=== PATIENT | female | born 1990 | race Caucasian/White ===

== ENCOUNTER 2019-06-06 08:20 | Emergency (ER) | payer MEDICAID ==
[~2019-06-06] VITALS: Ht 160 cm; Wt 72.6 kg
[2019-06-06 08:28] VITALS: TEMP 98.7
[2019-06-06] MEDS ORDERED: CRUTCHES MC (08:49)
[2019-06-06] MEDS ORDERED: PERCOCET 325 MG1 TA2 PO (08:49)
[2019-06-06 09:45] VITALS: BP 135/94; PULSE 81
== END 2019-06-06 09:50 | disposition home or self-care (01) ==
LOC: COL.ER 08:20
DX: S82.891A Other fracture of right lower leg, initial encounter for closed fracture (principal); S93.402A Sprain of unspecified ligament of left ankle, initial encounter; W10.9XXA Fall (on) (from) unspecified stairs and steps, initial encounter; X50.1XXA Overexertion from prolonged static or awkward postures, initial encounter; Y92.009 Unspecified place in unspecified non-institutional (private) residence as the place of occurrence of the external cause
CPT/HCPCS: J3010; Q4045

== ENCOUNTER 2020-03-21 09:42 | Emergency (ER) | payer BC ==
[~2020-03-21] VITALS: Ht 160 cm; Wt 84.5 kg
[~2020-03-21 09:42] MED LIST: CRUTCHES MC; PERCOCET 325 MG1 TA2 PO
[2020-03-21 09:52] VITALS: TEMP 98.6
[2020-03-21 10:38] LABS: COLLECTION METHOD CLEAN CATCH
[2020-03-21 10:43] LABS: BASO # 0.1 (0.0-0.2); BASO % 0.8 % (0.0-2.0); EOS % 0.4 % (0-4.0); GRAN # 6.9 (1.4-6.5); GRAN % 76.7 % (42.2-75.2); HEMATOCRIT 40.6 % (37.0-47.0); HEMOGLOBIN 13.2 g/dl (12.5-16.0); LYMPH # 1.5 (1.2-3.4); LYMPH % 16.8 % (20.0-51.0); MEAN CELL VOLUME 86 fl (80.0-100.0); MEAN CORPUSCULAR HEMOGLOBIN 28 pg (27.0-31.0); MEAN CORPUSCULAR HGB CONC 33 g/dl (33.0-37.0); MEAN PLATELET VOLUME 12.1 fl (7.4-10.4); MONO # 0.4 (0.1-0.6); MONO % 4.7 % (1.7-9.3); PLATELET COUNT 185 K/mm3 (130-400); RED BLOOD COUNT 4.72 M/mm3 (4.10-5.30); REDCELL DISTRIBUTION WIDTH-CV 13.9 % (11.5-14.5)
[2020-03-21 10:55] LABS: ALBUMIN 4.3 gm/dL (3.5-5.0); BILIRUBIN,TOTAL 0.7 mg/dL (0.0-1.0); C-REACTIVE PROTEIN 1.6 mg/dL (0.0-0.9); CALCIUM 9.2 mg/dL (8.4-10.2); CREATININE, serum 0.51 (0.52-1.25); POTASSIUM 3.8 mmol/L (3.4-5.0); TOTAL PROTEIN 7.9 gm/dL (6.4-8.2)
[2020-03-21 11:20] LABS: AMORPHOUS CRYSTAL Present /uL; MUCOUS Present /lpf; PH 5 (5-8); SQUAMOUS EPITHELIAL 0-2 /hpf; URINE APPEARANCE Hazy; URINE BACTERIA Rare /hpf; URINE BILIRUBIN Negative (NEGATIVE); URINE BLOOD 1+ (NEGATIVE); URINE COLOR Yellow; URINE GLUCOSE Negative (NEGATIVE); URINE KETONE Negative (NEGATIVE); URINE LEUKOCYTE ESTERASE Negative (NEGATIVE); URINE NITRATE Negative (NEGATIVE); URINE PROTEIN(semi-quant) Negative (NEGATIVE); URINE RBC 0-2 /hpf
[2020-03-21] MEDS ORDERED: NORCO 325 MG-51 TAB PO (12:37)
[2020-03-21] MEDS ORDERED: ZOFRAN ODT4 MG PO (12:37)
[2020-03-21 12:50] VITALS: BP 122/89; PULSE 76
== END 2020-03-21 12:50 | disposition home or self-care (01) ==
LOC: COL.ER 09:42
PROVIDERS: Physician Assistant
DX: K76.0 Fatty (change of) liver, not elsewhere classified (principal); N83.202 Unspecified ovarian cyst, left side; K38.8 Other specified diseases of appendix
CPT/HCPCS: J1170; J1885; J2405; J7030; Q9967

== ENCOUNTER 2020-09-03 23:20 | Observation (INO) | payer BC ==
[~2020-09-03] VITALS: Ht 160 cm; Wt 78.1 kg
[~2020-09-03 23:20] MED LIST changes: +NORCO 325 MG-51 TAB PO; +ZOFRAN ODT4 MG PO
[2020-09-04] VITALS (14 sets, daily range): BP systolic 93–129; BP diastolic 57–74; PULSE 71–128; TEMP 98.1–102.2
[2020-09-04 00:06] LABS: HEMATOCRIT 38.1 % (37.0-47.0); HEMOGLOBIN 12.8 g/dl (12.5-16.0); MEAN CELL VOLUME 82 fl (80.0-100.0); MEAN CORPUSCULAR HEMOGLOBIN 28 pg (27.0-31.0); MEAN CORPUSCULAR HGB CONC 34 g/dl (33.0-37.0); MEAN PLATELET VOLUME 12.5 fl (7.4-10.4); PLATELET COUNT 155 K/mm3 (130-400); RED BLOOD COUNT 4.64 M/mm3 (4.10-5.30); REDCELL DISTRIBUTION WIDTH-CV 14.5 % (11.5-14.5)
[2020-09-04 00:12] LABS: ALBUMIN 3.9 gm/dL (3.5-5.0); BILIRUBIN,TOTAL 0.7 mg/dL (0.0-1.0); C-REACTIVE PROTEIN 5.6 mg/dL (0.0-0.9); CREATININE, serum 0.54 (0.52-1.25); TOTAL PROTEIN 7.1 gm/dL (6.4-8.2)
[2020-09-04 00:54] LABS: BAND 21 % (0-10); EOSINOPHIL 3 % (0-4); LYMPHOCYTE 21 % (20.0-51.0); NEUTROPHILS 55 % (42.0-75.2); PLATELET ESTIMATE NORMAL (NORMAL)
[2020-09-04 02:19] LABS: COLLECTION METHOD CLEAN CATCH
[2020-09-04 02:25] LABS: MUCOUS Present /lpf; PH 5 (5-8); SQUAMOUS EPITHELIAL 0-2 /hpf; URINE APPEARANCE Hazy; URINE BACTERIA Rare /hpf; URINE BILIRUBIN Negative (NEGATIVE); URINE BLOOD Negative (NEGATIVE); URINE COLOR Yellow; URINE GLUCOSE Negative (NEGATIVE); URINE KETONE Negative (NEGATIVE); URINE LEUKOCYTE ESTERASE Negative (NEGATIVE); URINE NITRATE Negative (NEGATIVE); URINE PROTEIN(semi-quant) Negative (NEGATIVE); URINE RBC 0-2 /hpf; URINE UROBILINOGEN Negative (NEGATIVE)
--- NOTE | 2020-09-04 05:25 | NUR ---
Pt wheeled to room by roc from ER. Pt ambulatory to bed. Pt reports her pain being in her RLQ. Reports some nausea. VSS and assessment completed. Plan of care explaine d
[2020-09-04 07:11] LABS: HEMOGLOBIN 10.9 g/dl (12.5-16.0); MEAN CELL VOLUME 84 fl (80.0-100.0); MEAN CORPUSCULAR HEMOGLOBIN 27 pg (27.0-31.0); MEAN CORPUSCULAR HGB CONC 33 g/dl (33.0-37.0); MEAN PLATELET VOLUME 12.1 fl (7.4-10.4); PLATELET COUNT 151 K/mm3 (130-400); RED BLOOD COUNT 3.98 M/mm3 (4.10-5.30); REDCELL DISTRIBUTION WIDTH-CV 14.6 % (11.5-14.5)
[2020-09-04 07:14] LABS: HEMATOCRIT 33.3 % (37.0-47.0)
[2020-09-04 09:26] LABS: BAND 37 % (0-10); LYMPHOCYTE 4 % (20.0-51.0); NEUTROPHILS 59 % (42.0-75.2); PLATELET ESTIMATE NORMAL (NORMAL)
[2020-09-04 09:27] LABS: HYPOCHROMIA 1+
--- NOTE | 2020-09-04 13:09 | NUR ---
Hardwood Floor Refinisher offered prayer and support with patient.
--- NOTE | 2020-09-04 14:19 | NUR ---
pt refuses covid swab
[2020-09-05 00:20] VITALS: BP 94/55; PULSE 58; TEMP 98.2
[2020-09-05 04:25] VITALS: BP 92/54; PULSE 62; TEMP 98.3
--- NOTE | 2020-09-05 06:15 | NUR ---
PATIENT AMBULATED FROM BED TO BATHROOM THEN BACK TO BED
[2020-09-05 07:20] VITALS: BP 103/70; PULSE 62; TEMP 97.8
[2020-09-05 07:22] LABS: BASO % 0.2 % (0.0-2.0); EOS % 0.1 % (0-4.0); GRAN # 18.4 (1.4-6.5); GRAN % 86.7 % (42.2-75.2); HEMOGLOBIN 10.3 g/dl (12.5-16.0); LYMPH # 1.6 (1.2-3.4); LYMPH % 7.8 % (20.0-51.0); MEAN CELL VOLUME 86 fl (80.0-100.0); MEAN CORPUSCULAR HEMOGLOBIN 28 pg (27.0-31.0); MEAN CORPUSCULAR HGB CONC 32 g/dl (33.0-37.0); MEAN PLATELET VOLUME 12.5 fl (7.4-10.4); MONO # 0.9 (0.1-0.6); MONO % 4.4 % (1.7-9.3); PLATELET COUNT 143 K/mm3 (130-400); RED BLOOD COUNT 3.69 M/mm3 (4.10-5.30)
[2020-09-05 07:24] LABS: HEMATOCRIT 31.9 % (37.0-47.0)
--- NOTE | 2020-09-05 08:40 | NUR ---
PATIENT AMBULATED TO THE BATHROOM THEN TO HALLWAY AND WALKED 1 FULL LOOP THEN BACK TO BED
[2020-09-05] MEDS ORDERED: AMOXICILLIN 8751 TAB PO (09:30)
[2020-09-05] MEDS ORDERED: ROXICODONE 55 MG/TAB PO (09:31)
[2020-09-05 10:30] VITALS: BP 105/77; PULSE 88
== END 2020-09-05 11:00 | disposition home or self-care (01) ==
LOC: COL.ER 23:20 → OB 09-04 03:01
PROVIDERS: Physician Assistant; Surgery; ADMIT Obstetrics & Gynecology
DX: O99.611 Diseases of the digestive system complicating pregnancy, first trimester (principal); Z3A.01 Less than 8 weeks gestation of pregnancy; K35.80 Unspecified acute appendicitis; Z86.19 Personal history of other infectious and parasitic diseases
CPT/HCPCS: G0378; J1100; J1170; J2270; J2405; J2543; J2704; J2710; J2765; J3010; J3480; J7030

== ENCOUNTER 2021-03-01 16:36 | Outpatient (CLI) | payer BC ==
[~2021-03-01] VITALS: Ht 160 cm; Wt 84.1 kg
[~2021-03-01 16:36] MED LIST changes: +AMOXICILLIN 8751 TAB PO; +ROXICODONE 55 MG/TAB PO
--- NOTE | 2021-03-01 16:55 | NUR ---
PATIENT HERE FOR DECREASED MOVEMENT. PATIENT LAST FELT BABY MOVE AT 1430. PATIENT HERE WITH . CHANGED INTO GOWN, ON EFM, ASSESMENT COMPLETE, PATIENT STATES SHE HAD THICK WHITE DISCHARGE YESTERDAY, MILD CONTRACTIONS THAT HAVE SUBSIDED YESTERDAY. PATIENT DENIES BLEEDING, CONTRACTIONS OR LEAKING OF FLUID TODAY
[2021-03-01] MEDS ORDERED: PROFERRIN ES12 MG PO (16:59)
[2021-03-01] MEDS ORDERED: PRENATAL (16:59)
[2021-03-01 17:00] VITALS: BP 124/75; PULSE 89; TEMP 98
--- NOTE | 2021-03-01 17:10 | NUR ---
patient states she took her blood sugar at 1530 and it was 89. patient also states she is feeling baby move at this time
[2021-03-01 17:30] VITALS: BP 115/55; PULSE 84
--- NOTE | 2021-03-01 17:56 | NUR ---
patient on efm at 1642. toco not working.. patient not having contractions
--- NOTE | 2021-03-01 17:56 | NUR ---
no contractions palpated, patient denies contractions
[2021-03-01 18:00] VITALS: BP 114/65; PULSE 80
--- NOTE | 2021-03-01 18:45 | NUR ---
Discharge instructions reviewed with patient and spouse. All questions answered and verbalized understanding. Pt seen ambulating off unit with spouse.
== END 2021-03-01 18:45 | disposition home or self-care (01) ==
LOC: LDRO 16:36
DX: O36.8130 Decreased fetal movements, third trimester, not applicable or unspecified (principal); Z3A.32 32 weeks gestation of pregnancy

== ENCOUNTER → 2021-03-10 | Outpatient (CLI) | payer BC ==
[~2021-03-10] MED LIST changes: +IBU800 M1 PO; +PRENATAL; +PROFERRIN ES12 MG PO
== END ==
LOC: DIA.ED 07:49
DX: O24.419 Gestational diabetes mellitus in pregnancy, unspecified control (principal)
CPT/HCPCS: G0108

== ENCOUNTER → 2021-04-04 | Outpatient (CLI) | payer BC | LOC: DIA.ED 08:52 | DX: O24.419 Gestational diabetes mellitus in pregnancy, unspecified control (principal) | CPT/HCPCS: G0108 ==

== ENCOUNTER 2021-04-09 10:30 | Outpatient (CLI) | payer BC ==
[~2021-04-09] VITALS: Ht 160 cm; Wt 85.5 kg
[~2021-04-09 10:30] MED LIST changes: -IBU800 M1 PO
--- NOTE | 2021-04-09 10:45 | NUR ---
Patient arrives via wheelchair from ER with complaints of pelvic bone pain and cramping. Patient states she has been experiencing this pelvic bone pain since her second trimester. Patient reports normal movement, denies vaginal bleeding or leaking of fluid. Patient reports she got her second COVID vaccine yesterday and has been running a low grade fever overnight. Denies COVID symptoms prior to vaccination and denies exposure. 1055- SVE by Betito Rosario RN closed/thick/high. Patient repositioned WL and assessment completed. See physician notification.
[2021-04-09 11:30] VITALS: BP 95/65; PULSE 107; TEMP 99.5
--- NOTE | 2021-04-09 11:42 | NUR ---
Reviewed plan of care with patient for discharge home. Patient given labor precautions and kick counts reviewed. Encouraged patient to rest, try heat pack, warm baths, and call office to ask for referral for pelvic floor therapist on Sunday. Patient agrees to plan of care and denies questions. Escorted off unit via wheelchair.
[2021-04-09 11:45] VITALS: BP 116/74; PULSE 104
== END 2021-04-09 11:55 | disposition home or self-care (01) ==
LOC: LDRO 10:30
DX: O26.893 Other specified pregnancy related conditions, third trimester (principal); R10.2 Pelvic and perineal pain; Z3A.37 37 weeks gestation of pregnancy

== ENCOUNTER 2021-04-14 02:22 | Outpatient (CLI) | payer BC ==
[2021-04-14 03:12] VITALS: BP 119/72; PULSE 80; TEMP 98.1
== END 2021-04-14 03:20 | disposition home or self-care (01) ==
LOC: LDRO 02:22
DX: Z34.93 Encounter for supervision of normal pregnancy, unspecified, third trimester (principal); Z3A.38 38 weeks gestation of pregnancy

== ENCOUNTER 2021-04-14 15:53 | Inpatient (IN) | payer BC ==
[2021-04-14] VITALS (29 sets, daily range): BP systolic 89–127; BP diastolic 52–78; PULSE 61–88; TEMP 97.4–98.2
[~2021-04-14] VITALS: Ht 160 cm; Wt 85.5 kg
[2021-04-14 16:51] LABS: BASO % 0.5 % (0.0-2.0); EOS # 0.1 (0.0-0.7); GRAN # 5.4 (1.4-6.5); GRAN % 68.3 % (42.2-75.2); HEMOGLOBIN 11.5 g/dl (12.5-16.0); LYMPH % 24.9 % (20.0-51.0); MEAN CELL VOLUME 78 fl (80.0-100.0); MEAN CORPUSCULAR HEMOGLOBIN 25 pg (27.0-31.0); MEAN CORPUSCULAR HGB CONC 32 g/dl (33.0-37.0); MONO # 0.4 (0.1-0.6); MONO % 4.9 % (1.7-9.3); PLATELET COUNT 201 K/mm3 (130-400); RED BLOOD COUNT 4.64 M/mm3 (4.10-5.30); REDCELL DISTRIBUTION WIDTH-CV 19.5 % (11.5-14.5)
--- NOTE | 2021-04-14 16:54 | NUR ---
8867 PATIENT HERE FROM OFFICE FOR ADMIT. SROM AROUND [address] LAW. EFM ON FHT 150 NORA VERY ACTIVE. CONTRACTIONS IRREGULAR EVERY 5-6 MIN. IV STARTED IN LEFT WRIST AND LR STARTED AT THIS TIME. CONSENTS AT THIS TIME
[2021-04-14 17:17] LABS: HEMATOCRIT 36.2 % (37.0-47.0)
--- NOTE | 2021-04-14 17:34 | NUR ---
1730 UP TO BATHROOM. PITOCIN STARTED AT 2
--- NOTE | 2021-04-14 18:30 | NUR ---
Report received from Wanda DANIELSON. 1834: Dina SCHMIDT at bedside for epidural and explains procedure. Pt assisted to edge of bed. Difficulty tracing FHR due to maternal position. Pulse ox applied. 1840: Single shot administered by Dina SCHMIDT. See anesthesia records. 1849: Pt assisted to wedge right position. Plan of care and safety precautions explained to pt. Call light within reach. 1931: Sahni placed without difficulty. Pericare provided. Pt repositioned to wedge left with peanut ball. : FHR deceleration noted while on the phone with . Pt repositioned to left lateral. SVE unchanged. Spontaneous return to baseline. 2116: called unit for update. See physican notification. [id number]: Difficulty tracing contractions due to maternal position. TOCO adjusted. 2144: Patty explained and started at this time for prolonged rupture. 0015: at nurses station and reviewx FHR strip. Update on pts status given. Keep pitocin at 18mus.
[2021-04-15] VITALS (47 sets, daily range): BP systolic 94–145; BP diastolic 51–83; PULSE 58–101; TEMP 97.8–99.2
--- NOTE | 2021-04-15 | NUR ---
[id number]: Difficulty tracing contractions via TOCO due to maternals position. TOCO adjusted mulitple times. Pt repositioned at 0245 and contractions tracing well. [id number]: Difficulty tracing FHR due to maternals position. Pt repositioned.
--- NOTE | 2021-04-15 06:50 | NUR ---
Patient screened for COVID19. Refuses test.
--- NOTE | 2021-04-15 07:25 | NUR ---
Patient reports increased pressure. SVE 10/+2. notified and orders to begin pushing. Sahni catheter removed prior to pushing, pericare given. 0728- Patient begins pushing with RN at bedside. Closed knee position used per PT recommendation initally, then patient requests to push with knees out.
--- NOTE | 2021-04-15 09:10 | NUR ---
09- Dr. Laura requested at bedside for impending delivery. 911- Dr. Laura at bedside. Patient continues pushing with contractions. Nursery RN to bedside. 919- of viable female infant attended by Dr. Laura. Infnat to mother's abdomen, care of to Kofi Navarrete RN. Apgars 8/9/9. 0924- Spont. delivery of placenta. Pitocin started at 333ml/hr/protocol. Initial uterine atony noted, red fransisco catheter performed by physician and fundal massage by RN improves bleeding. Fundus firm one below. Second degree perineal laceration repaired by physician. Lidocaine used. Pericare given and ice pack applied. Patient updated on plan of care and safety.
[2021-04-16 00:20] VITALS: BP 113/60; PULSE 78; TEMP 98.6
[2021-04-16 04:30] VITALS: BP 117/62; PULSE 67; TEMP 97.9
[2021-04-16] MEDS ORDERED: IBU800 M1 PO (08:42)
[2021-04-16 09:15] VITALS: BP 116/65; PULSE 92; TEMP 98.1
--- NOTE | 2021-04-16 18:30 | NUR ---
Report recieved. Resting in bed at this time. [place] updated and POC reviewed. Discussed pain management options; reports she has been using "cold packs" but they "get stuck and feel hard." Encourgaed to try a regular pad and rinse with warm water or take a shower and allow the warm water to wash over her perineum. Further questions denied at this time.
[2021-04-16 19:30] VITALS: BP 116/65; PULSE 71; TEMP 98
--- NOTE | 2021-04-17 00:10 | NUR ---
Called to nurses station to have 's temperature checked. Holding sleeping at this time. Reports perinial pain is increasing at this time. Tylenol administered per request. Reports infant nursed at 2115, 2200, and 2300 "so I will nurse him now too." Discussed frequency of breastfeeds and feeding cues. States, "He was licking his lips." This nurse asked if the patient has gotten any rest of nap today and her states, "No." This nurse briefly steps out of the room and upon returning patient is noticably crying; mine anything is wrong. Encouraged pt to swaddle and lay him in his crib since he is asleep and to turn off the lights to sleep. Discussed sleeping when baby sleeps and how they will be going home tomorrow. Encouraged patient to call if she is unable to sleep while the infant is in the room as he could be taken to the nursery between feeds. Patient states, "Ok, I will try."
[2021-04-17 07:33] VITALS: BP 132/84; PULSE 78; TEMP 98.1
== END 2021-04-17 11:33 | disposition home or self-care (01) | DRG 807 ==
LOC: OB 15:53 → LDR 16:02 → OB 04-15 13:00
PROVIDERS: ADMIT Obstetrics & Gynecology
PROC: 10E0XZZ Delivery of Products of Conception, External Approach (ICD-10-PCS; principal; 2021-04-15)
PROC: 0KQM0ZZ Repair Perineum Muscle, Open Approach (ICD-10-PCS; 2021-04-15)
PROC: 3E033VJ Introduction of Other Hormone into Peripheral Vein, Percutaneous Approach (ICD-10-PCS; 2021-04-15)
DX: O99.02 Anemia complicating childbirth (principal); Z37.0 Single live birth; D64.9 Anemia, unspecified; O99.214 Obesity complicating childbirth; E66.9 Obesity, unspecified; O24.420 Gestational diabetes mellitus in childbirth, diet controlled; O70.1 Second degree perineal laceration during delivery; Z3A.38 38 weeks gestation of pregnancy; Z34.93 Encounter for supervision of normal pregnancy, unspecified, third trimester
CPT/HCPCS: J2405; J2540; J2590; J2795; J7120

== ENCOUNTER 2022-10-18 10:38 | Outpatient (CLI) | payer BC, MEDICAID ==
[~2022-10-18] VITALS: Ht 160 cm; Wt 88.6 kg
[~2022-10-18 10:38] MED LIST changes: +IBU800 M1 PO
--- NOTE | 2022-10-18 10:50 | NUR ---
1050 - PATIENT AMBULATORY TO LDR2 ACCOMPANIED BY SPOUSE. PATIENT ORIENTED TO ROOM. PATIENT CHANGES INTO GOWN. 1053 - PLAN OF CARE REVIEWED. PATIENT ON MONITOR. PATIENT REPORTS CONTRACTIONS OVERNIGHT THAT HAVE BEOME MORE REGULAR AND CLOSER TOGETHER. PATIENT ALSO REPORTS "LOSING HER MUCOUS PLUG" AND DISCHARGE THAT WAS "PINK TINGED AND THEN BRIGHT RED". PATIENT DENIES LEAKING OF FLUID. PATIENT REPORTS GOOD MOVEMENT. 1100 - SVE PERFORMED BY THIS RN. 3-/-3. CERVIX POSTERIOR. PATIENT REPOSITIONED. ORAL HYDRATION PROVIDED. 1117 - MD ANI NOTIFIED OF PATIENT ARRIVAL AND ABOVE ASSESSMENTS. REPEAT SVE TO BE PERFORMED AFTER 1 HOUR OF MONITORING PER MD. CARE ONGOING.
[2022-10-18 11:30] VITALS: BP 115/65; PULSE 100; TEMP 98.3
[2022-10-18 12:00] VITALS: PULSE 84
--- NOTE | 2022-10-18 12:00 | NUR ---
1200 - SVE PERFORMED BY THIS RN. EXAM UNCHANGED FROM PREVIOUS. 3-/-3. BLOODY SHOW NOTED ON GLOVE. 1205 - MD ANI ON UNIT AND NOTIFIED OF ABOVE EXAM. DISCHARGE ORDERS OBTAINED FROM MD. 1210 - DISCHARGE INSTRUCTIONS REVIEWED WITH PATIENT AND SPOUSE. QUESTIONS ANSWERED. PATIENT REPORTS FEELING A TRICKLE OF FLUID AFTER PEEING WHILE SEATED ON TOILET. AMNIOTRACE NEGATIVE. PATIENT OFFERED FURTHER MONITORING, BUT PATIENT DECLINES AND STATES SHE HAS A CLINIC APPOINTMENT THIS AFTERNOON. 1212 - MD ANI NOTIFIED OF PATIENT REPORTING "LEAKING OF FLUID" AND NEGATIVE AMNIOTRACE. ACKNOWLEDGES THIS AND STATES TO CONTINUE WITH DISCHARGE. 1220 - PATIENT AMBULATORY OFF UNIT ACCOMPANIED BY SPOUSE.
== END 2022-10-18 12:20 | disposition home or self-care (01) ==
LOC: LDRO 10:38
DX: Z34.93 Encounter for supervision of normal pregnancy, unspecified, third trimester (principal); Z3A.38 38 weeks gestation of pregnancy

== ENCOUNTER 2022-10-18 14:54 | Inpatient (IN) | payer BC, MEDICAID ==
[~2022-10-18] VITALS: Ht 160 cm; Wt 88.6 kg
[2022-10-18] VITALS (29 sets, daily range): BP systolic 101–178; BP diastolic 52–78; PULSE 65–97; TEMP 97.9–98.3
--- NOTE | 2022-10-18 15:30 | NUR ---
1530 - PATIENT AMBULATORY TO LDR3 FROM CLINIC. DIRECT ADMISSION ORDERS CALLED IN BY MD ANI. PATIENT ORIENTED TO ROOM. PATIENT USES BATHROOM AND CHANGES INTO GOWN. 1544 - PLAN OF CARE REVIEWED WITH PATIENT. PATIENT ON MONITOR. 1555 - IV PLACED. LABS DRAWN ORDERED. LR INITIATED. CONSENTS REVIEWED AND SIGNED. CARE ONGOING.
[2022-10-18 16:32] LABS: BASO % 0.4 % (0.0-2.0); EOS % 0.5 % (0.0-4.0); GRAN # 5.5 K/mm3 (1.4-6.5); GRAN % 67.6 % (42.2-75.2); HEMOGLOBIN 10.9 g/dl (12.5-16.0); LYMPH % 25.2 % (20.0-51.0); MEAN CELL VOLUME 76 fl (80.0-100.0); MEAN CORPUSCULAR HEMOGLOBIN 24 pg (27-31); MEAN CORPUSCULAR HGB CONC 32 g/dl (33.0-37.0); MEAN PLATELET VOLUME 12.9 fl (7.4-10.4); MONO # 0.5 K/mm3 (0.1-0.6); MONO % 5.8 % (1.7-9.3); PLATELET COUNT 210 K/mm3 (130-400); RED BLOOD COUNT 4.48 M/mm3 (4.10-5.30); REDCELL DISTRIBUTION WIDTH-CV 17.1 % (11.5-14.5)
[2022-10-18 16:34] LABS: HEMATOCRIT 34.1 % (37.0-47.0)
--- NOTE | 2022-10-18 17:53 | NUR ---
1753 - PATIENT REQUESTING EPIDURAL. ROXANA AMBRIZ NOTIFIED FOR ANESTHESIA. CARE ONGOING.
--- NOTE | 2022-10-18 18:15 | NUR ---
Pt sitting on edge of bed, ready for epidural placement. Ricardo ELECTRONICS PRODUCTION SUPERVISOR into room. Pt tense, anxious, tearful during placement. See anesthesia record. attentive at bedside.
[2022-10-19] VITALS (15 sets, daily range): BP systolic 95–143; BP diastolic 48–71; PULSE 68–92; TEMP 97.9–98.8
--- NOTE | 2022-10-19 01:30 | NUR ---
Placenta delivers spont and intat with 3 vessell cord. Pitcin gtt to bolus rate. Pt and spouse loving and excited about and delivery. Perineal inspection and repair strted.
--- NOTE | 2022-10-19 03:45 | NUR ---
Sleeping, awakened for assessment. Pt can bend R knee with concentration, but unable to bend L knee or move L foot.
[2022-10-19 06:49] LABS: HEMATOCRIT 29.6 % (37.0-47.0); HEMOGLOBIN 9.6 g/dl (12.5-16.0)
--- NOTE | 2022-10-19 06:54 | NUR ---
0530 moved to room with roseann gonsalez. Voids, performs own pericare. Tylenol and Motrin given. Pt instructed to not get out of bed without staff assistance. Verbalizes understanding.
--- NOTE | 2022-10-19 07:12 | NUR ---
0112 PUSHING INSRTUCIONS GIVEN. Pt states "I can't really feel the contractins. Just tell me when and how to push" pt's states "she pushed [address] Benson in call room. 0115 pt starting to move baby down. 0120 Baby crowns, Dr Benson called to come form call room. Pt encouraged not to push. Pt in good control, not pushing. feels urge but no pain. 0125 Dr Benson into room. [address] Benson.
--- NOTE | 2022-10-19 09:15 | NUR ---
Initial visit attempt; Family resting, Verifier Operator left card offering congratulations and God's blessings for the of their daughter and information regarding the availability of [facility] Care at our hospital.
[2022-10-20 07:36] VITALS: BP 119/66; PULSE 69; TEMP 97.9
[2022-10-20] MEDS ORDERED: IBU600 MG PO (08:30)
[2022-10-20] MEDS ORDERED: PERCOCET 325 MG1 TA2 PO (08:30)
--- NOTE | 2022-10-20 13:19 | NUR ---
ALL DC PAPERWORK REVIEWED AND UNDERSTOOD. ALL FOLLOW UP APPOINTMENTS REVIEWED. ALL BELONGINGS ACCOUNTED FOR. INFANT TO BREAST AT THIS TIME. WILL DC FOLLOWING THIS FEED.
== END 2022-10-20 14:00 | disposition home or self-care (01) | DRG 807 ==
LOC: OB 14:54 → LDR 15:14 → OB 10-19 05:30
PROVIDERS: ADMIT Obstetrics & Gynecology
PROC: 10E0XZZ Delivery of Products of Conception, External Approach (ICD-10-PCS; principal; 2022-10-19)
PROC: 0KQM0ZZ Repair Perineum Muscle, Open Approach (ICD-10-PCS; 2022-10-19)
DX: O77.0 Labor and delivery complicated by meconium in amniotic fluid (principal); Z37.0 Single live birth; Z3A.38 38 weeks gestation of pregnancy; Z23 Encounter for immunization; O70.1 Second degree perineal laceration during delivery
CPT/HCPCS: J2405; J2590; J2795; J7120